=== PATIENT | male | born 1980 | race Two or more races ===

== ENCOUNTER 2024-09-22 13:24 | Emergency (ER) | payer MEDICAID ==
[~2024-09-22] VITALS: Ht 172.7 cm; Wt 90.9 kg
[2024-09-22 13:28] VITALS: BP 174/109; PULSE 98; TEMP 96.8; O2SAT 99
--- NOTE | 2024-09-22 15:27 | Physician Documentation ---
History of Present Illness ~ Chief Complaint: Finger pain Stated Complaint: L HAND PAIN Time Seen by MD: 13:40 HPI Patient is seen today with complaints of pain in his left long finger that occurred seemingly spontaneously today. Patient states he has not had any trauma to that finger other than possibly getting poked by a black very brush in the side of the PIP joint of the left long finger. Patient was concerned the finger might be broken today because of the pain. Patient denies any swelling or redness or warmth. He states symptoms just started today while working in the [place]. He has no other concern or complaint at this time. Tetanus within 5 years: Yes Medication Reconciliation Allergies: Coded Allergies: No Known Allergies (Unverified , 09/22/24) Review of Systems Constitutional: Denies: chills, fever, weakness Eyes: Denies: pain, blurred vision ENT: Denies: ear pain, nose pain, throat pain, mouth pain Respiratory: Denies: cough, shortness of breath Cardiovascular: Denies: chest pain, palpitations Gastrointestinal: Denies: abdominal pain, nausea, vomiting Genitourinary: Denies: burning, dysuria Male Genitalia: Denies: penile discharge, testicular pain Neurological: Denies: headache, dizziness Musculoskeletal: Denies: pain, swelling Integumentary: Denies: rash, lesions Allergic/Immunologic: Denies: hives, itching Hematologic/Lymphatic: Denies: no symptoms reported Psychiatric: Denies: depression, anxiety Physical Exam Vital Signs: Temperature: 96.8, Source: Temporal, Heart Rate: 98, Respiratory Rate: 16, BP: 174/109, Pulse Oximetry: 99, Weight: 90.910 Oxygen Flow Rate: 0 Physical Exam General: Awake and Alert, no acute distress. HEENT: Conjunctiva pink, Sclera clear, Mucus Membranes moist. Neck: Supple without masses and tenderness. Resp: Unlabored. Lungs clear to auscultation bilaterally. Heart: Regular Rate and rhythm, normal S1 and S2 without murmur, rub or gallop. Musculoskeletal: Patient on exam does have significant tenderness to palpation surrounding the PIP joint of the left long finger in the dorsum as well as Flexeril surface and laterally. I do not however appreciate any swelling or erythema or induration or sign of infection. Patient has decreased range of motion because of pain however patient does have full passive range of motion of all digits. Patient is neurovascularly intact distally. Motor function is intact distally. Extremities: No cyanosis,clubbing or edema. Skin: Warm and Dry. Progress Results/Orders Results/Orders Orders - SUDARSHAN MAY PAC Finger(S) (09/22/24 15:25) Completed Orders - SUDARSHAN MAY PAC Ketorolac Trometh 30mg/Ml Vial (Toradol (09/22/24 15:25) Dexamethasone Inj (Decadron 10mg/Ml Inj) (09/22/24 15:25) Finger(S) (09/22/24 15:25) Medications Received in ER Medications (Trade) Dose Ordered Sig/Rhoda Route PRN Reason Start Time Stop Time Status Last Admin Dose Admin (Toradol inj. 30mg/ml) 30 mg ONCE STAT IM 09/22/24 15:25 09/22/24 15:29 DC 09/22/24 15:39 30 MG (Decadron 10mg/ ml inj) 10 mg ONCE STAT IM 09/22/24 15:25 09/22/24 15:29 DC 09/22/24 15:38 10 MG Vital Signs 09/22/24 09/22/24 09/22/24 13:28 15:39 16:13 Temp 96.8 Pulse 98 Resp 16 18 16 B/P (MAP) 174/109 Pulse Ox 99 O2 Flow Rate 0 EKG/XRAY/CT/US/VASC/MRI Bone/Soft Tissue X-Ray (Ext.) : Additional Comment X-ray of left long finger interpreted by myself today shows no sign of acute fracture, no osteolytic or blastic lesions, bones in anatomic alignment. The radiologist did appreciate possibly a nondisplaced placed fracture of the distal phalanx of the left long finger however when coordinated clinically, the patient has absolutely no tenderness to palpation of the D IP joint and only has tenderness to palpation of the PIP joint of the left long finger. DIAGNOSTIC RADIOLOGY Patient: THOMAS CARSON Medical Record: [id number] [facility] : 1980, Age: 44 Sex: Male Location: ER Patient Status: REG ER Service Date/Time: 09/22/24/ 1525 Ordering Physician: SUDARSHAN MAY Exam: FINGER(S) CLINICAL INDICATION: left long finger pain TECHNIQUE: AP view of the left hand and 2 additional views of the 3rd finger were performed. DI FINGER(S) Comparison: None FINDINGS/IMPRESSION: 1. Minimally displaced fracture of the lateral aspect of the base of the left 3rd finger distal phalanx with intra-articular extension to the DIP joint. 2. Possible old healed boxer's fracture of the left 5th metacarpal neck. Electronically Signed by:LUCIO ADAMSON MD Date & Time: 09/22/24 1606 Dictated by: LUCIO ADAMSON MD Dictation date and time: 09/22/24 1545 Primary Care Provider: NO PRIMARY CARE PROVIDER cc: SUDARSHAN MAY ~ Medical Decision Making Findings Patient is seen today with complaints of pain in his left long finger that occurred seemingly spontaneously today. Patient states he has not had any trauma to that finger other than possibly getting poked by a black very brush in the side of the PIP joint of the left long finger. Patient was concerned the finger might be broken today because of the pain. Patient denies any swelling or redness or warmth. He states symptoms just started today while working in the [place]. He has no other concern or complaint at this time. X-ray of left long finger showed no sign of acute fracture, patient will follow up with primary care in 2-5 days if no better as needed sooner. Patient was given Toradol 30 mg IM as well as Decadron 10 mg IM in the ED today. Return to ED with any worsening, concerning or changing symptoms. Continue Tylenol and ibuprofen as needed for symptomatic relief. Departure Disposition: 01 HOME / SELF CARE / HOMELESS Impression: Primary Impression: Finger pain, left Condition: Stable Discharge Instructions: Sprains Additional Instructions: X-ray of left long finger showed no sign of acute fracture, patient will follow up with primary care in 2-5 days if no better as needed sooner. Patient was given Toradol 30 mg IM as well as Decadron 10 mg IM in the ED today. Return to ED with any worsening, concerning or changing symptoms. Continue Tylenol and ibuprofen as needed for symptomatic relief. Referrals: NO PRIMARY CARE PROVIDER (PCP) Signature Scribe Signature: No scribe Attestation: No scribe SUDARSHAN MAY [facility] Sep 22, 2024 15:27
[2024-09-22] MEDS: dexamethasone sod phosphate 10mg/ml inj IM STA (15:38)
[2024-09-22] MEDS: ketorolac trometh 30MG/ML vial 30 MG/ML VIAL IM STA (15:39)
--- NOTE | 2024-09-22 16:09 | RADIOLOGY REPORT ---
CLINICAL INDICATION: left long finger pain TECHNIQUE: AP view of the left hand and 2 additional views of the 3rd finger were performed. DI FING ER(S) Comparison: None FINDINGS/IMPRESSION: 1. Minimally displaced fracture of the lateral aspect of the base of the left 3rd finger distal phala nx with intra-articular extension to the DIP joint. 2. Possible old healed boxer's fracture of the left 5th metacarpal neck.
[2024-09-22 16:13] VITALS: RESP 16
== END 2024-09-22 17:01 | disposition home or self-care (01) ==
LOC: ER 13:26
DX: M79.645 Pain in left finger(s) (principal)
CPT/HCPCS: 73140; 96372; 99284; J1100; J1885